=== PATIENT | female | born 1965 | race Caucasian/White ===

== ENCOUNTER 2016-06-04 08:53 | Emergency (ER) | payer MEDICARE ==
--- NOTE | 2016-06-04 09:29 | ER Document Report ---
ED General - General Chief Complaint: Facial Swelling Stated Complaint: FACE PAIN Time seen by provider: 09:24 Mode of Arrival: Ambulatory Information source: Patient Notes: 50-year-old female who reports one-week history of pain in the area of the right cheek and right upper jaw where she thinks she has some teeth going bed. Patient reports she doesn't have dental insurance and doesn't have a dentist locally but is going to see her daughter in [place] 7 in plans to seek dental care there. She reports subjective fevers and chills and occasional nausea but denies vomiting, pain with swallowing, earache, sore throat, or pain elsewhere. Physical Exam: General: Alert, appears well. HEENT: Normocephalic. Atraumatic. PERRLA. Extraocular movements intact. Exam members and canals clear Oropharynx moist mucous membranes with multiple absent teeth and multiple fractured teeth to the right upper and lower jaw. Posterior most remaining tooth in right upper jaw is tender to palpation and she has diffuse tenderness and slight erythema over the right cheek anteriorly up to the nose. There is no stridor or hoarseness or drooling and no swelling of soft tissues. Neck: Supple. Non-tender. No adenopathy. No submental swelling Respiratory: No respiratory distress. Clear and equal breath sounds bilaterally. Cardiovascular: Regular rate and rhythm. Abdominal: Normal Inspection. Soft, non-tender. No distension. Normal Bowel Sounds. Back: Non-tender. No deformity or step off. Extremities: Moves all four extremities. While extremities warm to plus pulses of cyanosis no edema Neurological: Speech clear mentation normal Psychological: Normal affect. Normal Mood. Skin: Warm. Dry. Normal color. TRAVEL OUTSIDE OF THE [place] IN LAST 30 DAYS: No - Related Data Allergies/Adverse Reactions: Bee Sting Kit *RETIRED-06/24/10 [Bee Sting Kit] Allergy (Severe, Unverified 06/20 04:56) Past Medical History - Social History Smoking Status: Current Some Day Smoker Chew tobacco use (# tins/day): No Frequency of alcohol use: Occasional Drug Abuse: None Family History: DM Patient has suicidal ideation: No Patient has homicidal ideation: No - Past Medical History Cardiac Medical History: Reports: Hx Hypertension Endocrine Medical History: Reports: Hx Diabetes Mellitus Type 2 Renal/ Medical History: Denies: Hx Peritoneal Dialysis GI Medical History: Reports: Hx Hiatal Hernia Musculoskeltal Medical History: Reports Hx Arthritis - RA Past Surgical History: Reports: Hx Adenoidectomy, Hx Appendectomy, Hx Breast Surgery - LUMPECTOMY, Hx Cardiac Surgery - STENT, Hx Cholecystectomy, Hx Hysterectomy, Hx Orthopedic Surgery - SPINE X3 - Immunizations Hx Diphtheria, Pertussis, Tetanus Vaccination: No Review of Systems - Review of Systems Constitutional: See HPI EENT: denies: Ear pain, Throat pain Cardiovascular: denies: Chest pain Respiratory: denies: Cough, Short of breath Gastrointestinal: denies: Abdominal pain, Vomiting Genitourinary: denies: Burning, Dysuria Musculoskeletal: denies: Back pain Hematologic/Lymphatic: denies: Swollen glands Neurological/Psychological: denies: Weakness, Numbness Physical Exam - Vital signs Vitals: Temp Pulse Resp BP Pulse Ox 97.9 F 75 14 169/95 H 99 06/04/16 08:59 06/04/16 08:59 06/04/16 08:59 06/04/16 08:59 06/04/16 08:59 Course - Re-evaluation Re-evalutation: 06/04/16 09:27 Patient has markedly carious of multiple teeth and exam consistent with dental infection. He'll be prescribed antibiotics medication for pain and instructed to follow with dentist as soon as possible either here or her final estimation and it is emphasized to her the antibiotics and pain medicine or other definitive treatment for her problem - Vital Signs Vital signs: Temp Pulse Resp BP Pulse Ox 97.9 F 75 14 169/95 H 99 06/04/16 08:59 06/04/16 08:59 06/04/16 08:59 06/04/16 08:59 06/04/16 08:59 Discharge - Discharge Clinical Impression: Dental caries Condition: Stable Disposition: HOME, SELF-CARE Additional Instructions: Dental Infection or Abscess You have an infection, perhaps an abscess (pus formation) of the gum around one of your teeth, which is probably decayed. If there is an abscess, it may drain on its own or it may need to be opened or lanced. Severe swelling or drainage around a tooth usually means a deep dental abscess which usually requires evaluation and treatment by a dentist or oral surgeon. Antibiotics may be prescribed while awaiting dental treatment. If you develop high fever with chills, worsening pain, or increasing swelling in the area, see a dentist or oral surgeon immediately or return to the Emergency Department immediately. Prescriptions: Amoxicillin Trihydrate [Amoxil 500 mg Capsule] 500 mg PO TID #30 cap Tramadol HCl 50 mg PO BID PRN #20 tablet PRN Reason: For Pain Referrals: [facility] [Provider Group] - Follow up in 1 week
[2016-06-04 10:12] VITALS: BP 175/106
== END 2016-06-04 10:11 | disposition home or self-care (01) ==
LOC: ER 08:53
DX: K02.9 Dental caries, unspecified (principal); R51 Headache; I10 Essential (primary) hypertension; E11.9 Type 2 diabetes mellitus without complications; Z90.49 Acquired absence of other specified parts of digestive tract; Z90.710 Acquired absence of both cervix and uterus
CPT/HCPCS: 99283